=== PATIENT | female | born 1995 | race Caucasian/White ===

== ENCOUNTER 2018-02-14 21:51 | Emergency (ER) | payer BC ==
[~2018-02-14] VITALS: Ht 162.6 cm; Wt 63.6 kg
[2018-02-14 21:58] VITALS: BP 122/72; TEMP 98.3
[2018-02-14 22:14] LABS: COLLECTION METHOD CLEAN CATCH
[2018-02-14] MEDS ORDERED: BREO IH (22:19)
[2018-02-14] MEDS ORDERED: ZYRTEC 10MG10 MG PO (22:20)
[2018-02-14] MEDS ORDERED: ZOLOFT 50MG50 MG PO (22:20)
[2018-02-14] MEDS ORDERED: LO LOESTRIN FE1 TAB PO (22:20)
[2018-02-14 22:21] LABS: PH 6 (5-8); SQUAMOUS EPITHELIAL 0-2 /hpf; URINE APPEARANCE Clear; URINE BACTERIA None Seen /hpf; URINE BILIRUBIN Negative (NEGATIVE); URINE BLOOD Negative (NEGATIVE); URINE COLOR Yellow; URINE GLUCOSE Negative (NEGATIVE); URINE KETONE Negative (NEGATIVE); URINE LEUKOCYTE ESTERASE Trace (NEGATIVE); URINE NITRATE Negative (NEGATIVE); URINE PROTEIN(semi-quant) Negative (NEGATIVE); URINE RBC 0-2 /hpf; URINE UROBILINOGEN Negative (NEGATIVE)
[2018-02-14 22:41] LABS: BASO # 0.1 (0.0-0.2); BASO % 0.9 % (0.0-2.0); EOS # 0.4 (0.0-0.7); EOS % 4.5 % (0-4.0); GRAN # 4.7 (1.4-6.5); GRAN % 48.7 % (42.2-75.2); HEMATOCRIT 41.4 % (37.0-47.0); HEMOGLOBIN 13.7 g/dl (12.5-16.0); LYMPH # 3.7 (1.2-3.4); LYMPH % 38.6 % (20.0-51.0); MEAN CELL VOLUME 86 fl (80.0-100.0); MEAN CORPUSCULAR HEMOGLOBIN 29 pg (27.0-31.0); MEAN CORPUSCULAR HGB CONC 33 g/dl (33.0-37.0); MEAN PLATELET VOLUME 9.5 fl (7.4-10.4); MONO # 0.7 (0.1-0.6); MONO % 6.9 % (1.7-9.3); PLATELET COUNT 364 K/mm3 (130-400); RED BLOOD COUNT 4.79 M/mm3 (4.10-5.30); REDCELL DISTRIBUTION WIDTH-CV 12.2 % (11.5-14.5)
[2018-02-14 22:53] LABS: ALBUMIN 4.2 gm/dL (3.5-5.0); BILIRUBIN,TOTAL 0.2 mg/dL (0.0-1.0); C-REACTIVE PROTEIN 0.9 mg/dL (0.0-0.9); CALCIUM 8.9 mg/dL (8.4-10.2); CREATININE, serum 0.75 mg/dL (0.52-1.25); POTASSIUM 3.5 mmol/L (3.4-5.0); TOTAL PROTEIN 7.3 gm/dL (6.4-8.2)
[2018-02-15 02:26] VITALS: PULSE 71
== END 2018-02-15 02:26 | disposition home or self-care (01) ==
LOC: COL.ER 21:51
PROVIDERS: Emergency Medicine
DX: R10.11 Right upper quadrant pain (principal); J45.909 Unspecified asthma, uncomplicated; F32.9 Major depressive disorder, single episode, unspecified; Z90.721 Acquired absence of ovaries, unilateral
CPT/HCPCS: J7030; Q9967

== ENCOUNTER → 2018-02-28 | Outpatient (CLI) | payer BC ==
[~2018-02-28] MED LIST: BREO IH; LO LOESTRIN FE1 TAB PO; ZOLOFT 50MG50 MG PO; ZYRTEC 10MG10 MG PO
== END ==
LOC: COL.RAD 07:20
DX: R10.31 Right lower quadrant pain (principal); Z98.890 Other specified postprocedural states

== ENCOUNTER 2018-08-21 16:50 | Emergency (ER) | payer OTHER ==
[~2018-08-21] VITALS: Ht 162.6 cm; Wt 62.7 kg
[2018-08-21 17:06] VITALS: TEMP 99.4
[2018-08-21 19:31] VITALS: BP 112/70; PULSE 67
== END 2018-08-21 19:32 | disposition home or self-care (01) ==
LOC: COL.ER 16:50
DX: G43.909 Migraine, unspecified, not intractable, without status migrainosus (principal); F32.9 Major depressive disorder, single episode, unspecified
CPT/HCPCS: J0780; J1200; J1885; J3010; J7030

== ENCOUNTER 2019-01-10 15:13 | Emergency (ER) | payer OTHER ==
[~2019-01-10] VITALS: Ht 162.6 cm; Wt 63.6 kg
[2019-01-10 15:48] VITALS: BP 110/70; TEMP 98.4
[2019-01-10 18:02] VITALS: PULSE 82
== END 2019-01-10 18:02 | disposition home or self-care (01) ==
LOC: COL.ER 15:13
DX: R51 Headache (principal); Z88.1 Allergy status to other antibiotic agents; Z79.51 Long term (current) use of inhaled steroids; V80.010A Animal-rider injured by fall from or being thrown from horse in noncollision accident, initial encounter

== ENCOUNTER 2019-06-11 23:16 | Emergency (ER) | payer OTHER ==
[~2019-06-11] VITALS: Ht 162.6 cm; Wt 63.6 kg
[2019-06-12 00:55] VITALS: BP 112/58; PULSE 56; TEMP 97.9
== END 2019-06-12 00:55 | disposition home or self-care (01) ==
LOC: COL.ER 23:16
DX: S09.90XA Unspecified injury of head, initial encounter (principal); J45.909 Unspecified asthma, uncomplicated; R40.2412 Glasgow coma scale score 13-15, at arrival to emergency department; W10.9XXA Fall (on) (from) unspecified stairs and steps, initial encounter; Y92.009 Unspecified place in unspecified non-institutional (private) residence as the place of occurrence of the external cause

== ENCOUNTER 2020-01-17 17:35 | Emergency (ER) | payer OTHER ==
[~2020-01-17] VITALS: Ht 162.6 cm; Wt 63.6 kg
[2020-01-17 17:42] VITALS: BP 112/77; TEMP 98
[2020-01-17 19:29] VITALS: PULSE 80
== END 2020-01-17 19:29 | disposition home or self-care (01) ==
LOC: COL.ER 17:35
DX: G43.909 Migraine, unspecified, not intractable, without status migrainosus (principal); Z79.51 Long term (current) use of inhaled steroids
CPT/HCPCS: J0780; J1200; J3010; J7030